=== PATIENT | female | born 2005 | race Caucasian/White ===

== ENCOUNTER 2024-06-07 15:01 | Emergency (ER) | payer BC, MEDICAID ==
[2024-06-07] MEDS ORDERED: Ondansetron 4 MG Tab.DIS PO ONE (15:02)
[2024-06-07 16:00] LABS: BASOPHILS ABSOLUTE AUTO 0.1 x10-3/uL (0.0-0.1); BASOPHILS PERCENT AUTO 0.6 % (0.2-1.5); EOSINOPHILS ABSOLUTE AUTO 0.4 x10-3/uL (0.0-0.8); EOSINOPHILS PERCENT AUTO 4.5 % (0.6-8.1); HEMATOCRIT 40.2 % (34.2-48.2); HEMOGLOBIN 13.9 g/dL (11.4-15.5); MEAN CORPUSCULAR HEMOGLOBIN 26.4 pg (23.9-33.9); MEAN CORPUSCULAR HGB CONC 34.6 g/dL (31.9-34.8); MEAN CORPUSCULAR VOLUME 76.1 fL (76.7-100.5); MONOCYTES ABSOLUTE AUTO 1.4 x10-3/uL (0.3-1.0); MONOCYTES PERCENT AUTO 13.9 % (4.4-15.7); PLATELET COUNT,PLT 386 x10(3)uL (151-488); RED BLOOD CELL COUNT 5.29 x10(6)uL (3.60-5.20); RED CELL DISTRIBUTION WIDTH 15.2 % (12.3-16.5); WHITE BLOOD CELL COUNT,WBC 9.9 x10-3/uL (3.0-10.3)
[2024-06-07 16:14] LABS: A/G RATIO 0.7; ALANINE AMINOTRANSFERASE,ALT 35 U/L (12-36); ALBUMIN 3.6 g/dL (3.5-5.2); ALKALINE PHOSPHATASE 122 IU/L (56-112); ASPARTATE AMNIOTRANSFERASE,AST 28 IU/L (5-25); BILIRUBIN TOTAL 0.4 mg/dL (0.1-1.3); BLOOD UREA NITROGEN,BUN 7 mg/dL (7-18); BUN/CREATININE RATIO 7.8 (9-20); CALCIUM 9.8 mg/dL (8.6-10.2); CARBON DIOXIDE,CO2 26 mmol/L (21-32); CHLORIDE,CL 100 mmol/L (100-110); CREATININE 0.9 mg/dL (0.55-1.02); ESTIMATED GFR 94 mL/min (>60); GLUCOSE RANDOM 100 mg/dL (80-116); PROTEIN TOTAL,TP 8.7 g/dL (6.0-8.0); SODIUM,NA 136 mmol/L (135-145)
[2024-06-07] MEDS: Ondansetron 4 MG Tab.DIS PO ONE (16:16)
[2024-06-07 16:52] VITALS: BP 123/95; PULSE 103
== END 2024-06-07 16:52 | disposition home or self-care (01) ==
LOC: FB.ED 15:01
DX: F50.20 Bulimia nervosa, unspecified (principal)
CPT/HCPCS: 36415; 80053; 83690; 85025; 99284; Q0162